=== PATIENT | female | born 1945 | race Caucasian/White ===

== ENCOUNTER 2023-10-27 08:08 | Outpatient (REF) | payer MEDICARE, SELFPAY | END 2023-10-27 08:09 | disposition home or self-care (01) | LOC: HO.SH 08:08 | PROVIDERS: Visit Provider Physician Assistant Medical | DX: Z01.118 Encounter for examination of ears and hearing with other abnormal findings (principal); H90.3 Sensorineural hearing loss, bilateral | CPT/HCPCS: 92557; 92567 ==